=== PATIENT | male | born 1945 | race Caucasian/White ===

== ENCOUNTER → 2018-02-25 | Outpatient (CLI) | payer MEDICARE | END | disposition home or self-care (01) | LOC: RADUSWWP 09:22 | PROVIDERS: ATTEND Family Medicine | DX: R09.89 Other specified symptoms and signs involving the circulatory and respiratory systems (principal) | CPT/HCPCS: 93922 ==

== ENCOUNTER → 2018-04-22 | Outpatient (CLI) | payer MEDICARE ==
--- NOTE | 2018-04-22 16:02 | XR ---
Chest x-ray with right RIBS HISTORY: Trauma and pain Frontal view of the chest, 5 views of the ribs submitted on a total of 6 images. No comparisons Degenerative disc changes are present in the visualized spine. There is no evident pneumothorax or pl eural effusion. Cardiomediastinal silhouette, pulmonary vascularity and bob are within normal limits . Rib fracture is noted. Fracture is noted at likely 10th level posterior laterally with displacement . Impression: displaced 10th rib fracture on the right.
== END | disposition home or self-care (01) ==
LOC: RADXRYALE 14:53
PROVIDERS: ATTEND Physician Assistant Medical
DX: S22.31XA Fracture of one rib, right side, initial encounter for closed fracture (principal)

== ENCOUNTER → 2022-09-25 | Outpatient (CLI) | payer MEDICARE | END | disposition home or self-care (01) | LOC: LABWHC1 14:46 | PROVIDERS: ATTEND Internal Medicine Interventional Cardiology | DX: I21.9 Acute myocardial infarction, unspecified (principal); R10.9 Unspecified abdominal pain | CPT/HCPCS: 36415; 84484 ==

== ENCOUNTER → 2023-06-10 | Outpatient (CLI) | payer MEDICARE ==
--- NOTE | 2023-06-10 14:46 | US ---
EXAMINATION TYPE: US scrotum with doppler. Grayscale and color Doppler Duplex imaging performed of ranjit griffin scrotum. DATE OF EXAM: 06/10/2023 COMPARISON: NONE CLINICAL INDICATION: Male, 78 years old with history of N50.811 RIGHT TESTICULAR PAIN; EXAM MEASUREMENTS: TESTICLES: Right Testicle: 4.3 x 2.1 x 3.2 cm Left Testicle: 3.6 x 2.3 x 3.2 cm EPIDIDYMIS HEAD: Right Epididymis: 1.3 cm Left Epididymis: 1.1 cm Doppler performed to assess for testicular vascularity; good bilateral color flow and waveforms are s een. There is no evidence of testicular torsion. Presence of hydroceles: right - 4.5cm, left 2.7cm Presence of varicoceles: no IMPRESSION: 1. No evidence of testicular torsion or intratesticular mass. 2. Small bilateral hydroceles.
== END | disposition home or self-care (01) ==
LOC: RADUSWWP 13:31
PROVIDERS: ATTEND Family Medicine
DX: N49.2 Inflammatory disorders of scrotum (principal); N50.811 Right testicular pain; N43.3 Hydrocele, unspecified
CPT/HCPCS: 76870; 93975

== ENCOUNTER 2024-02-06 08:39 | Day surgery (SDC) | payer MEDICARE ==
[2024-02-05 09:35] VITALS: BMI 27.2
[2024-02-06] MEDS: LACTATED RINGERS 1,000 ML IV SCH (09:10)
[2024-02-06 09:14] LABS: Glucose,Whole Blood 114 mg/dL (70-110)
[2024-02-06 09:26] VITALS: RESP 16; TEMP 97.7
[2024-02-06] MEDS ORDERED: PROPOFOL 10 MG/ML 20 ML VIAL IV ONE (09:28)
--- NOTE | 2024-02-06 09:42 | P.PCN ---
Date of Procedure: 02/06/24 Procedure(s) Performed: BRIEF HISTORY: Patient is [id number] pleasant white male scheduled for an elective colonoscopy as a part of evaluation of intermittent rectal bleeding for the last 1 week duration.. PROCEDURE PERFORMED: Colonoscopy With biopsy. PREOPERATIVE DIAGNOSIS: Intermittent rectal bleeding. IV sedation per Anesthesia. PROCEDURE: After informed consent was obtained, the patient, was brought into the endoscopy unit. IV sedation was administered by Anesthesia under continuous monitoring. Digital rectal examination was normal. Initially the Olympus CF-160 flexible video colonoscope was then inserted in the rectum, gradually advanced into the cecum without any difficulty. Careful examination was performed as the scope was gradually being withdrawn. Ileocecal valve and the appendiceal orifice were visualized and appeared normal. Prep was excellent. Mucosa of the cecum, ascending colon, transverse colon, descending colon,Appeared normal. There were patchy areas of erythema noted in the sigmoid colon from 30-40 cm from the anal verge and multiple biopsies were done from this area. Rest of the sigmoid colon, and rectum appeared normal. Retroflexion was performed in the rectum and grade 2 internal hemorrhoids were seen. The patient tolerated the procedure well. IMPRESSION: Small internal hemorrhoids Mild patchy areas of erythema in the sigmoid: Extensive from 30-40 cm from the anal verge status post biopsies No evidence of colorectal neoplasia RECOMMENDATIONS: Findings of this examination were discussed with the patient As well as his family. He was advised to follow with the biopsy results. Continue with a high-fiber diet and take fiber supplements a regular basis.
[2024-02-06 09:55] LABS: Glucose,Whole Blood 121 mg/dL (70-110)
[2024-02-06 10:12] VITALS: BP 135/70; PULSE 82
== END 2024-02-06 10:13 | disposition home or self-care (01) ==
LOC: ORWHC2ENDO 08:39
PROVIDERS: ATTEND Internal Medicine Gastroenterology
DX: K64.8 Other hemorrhoids (principal); I10 Essential (primary) hypertension; E78.5 Hyperlipidemia, unspecified; E11.9 Type 2 diabetes mellitus without complications; Z79.01 Long term (current) use of anticoagulants; Z79.84 Long term (current) use of oral hypoglycemic drugs; Z79.899 Other long term (current) drug therapy; Z88.8 Allergy status to other drugs, medicaments and biological substances
CPT/HCPCS: 88305; 45380; J2704

== ENCOUNTER → 2024-07-24 | Outpatient (CLI) | payer MEDICARE ==
[2024-07-24 15:16] LABS: Basophils # (A) 0.05 X 10*3/uL (0.00-0.10); Basophils % (A) 0.7 %; Eosinophils % (A) 1.3 %; HCT 45.9 % (39.6-50.0); Lymphocytes # (A) 1.09 X 10*3/uL (0.90-5.00); Lymphocytes % (A) 14.2 %; MCH 29.1 pg (27.0-32.0); MCHC 32.7 g/dL (32.0-37.0); MCV 89.1 FL (80.0-97.0); Mean Platelet Volume 10.1 FL (9.5-12.2); Monocytes # (A) 0.66 X 10*3/uL (0.20-1.00); Monocytes % (A) 8.6 %; NRBC Per 100 WBC 0 X 10*3/uL (0.00-0.01); Neutrophils # (A) 5.74 X 10*3/uL (1.80-7.70); Neutrophils % (A) 74.9 %; Platelet Count 177 X 10*3/uL (140-440); RBC 5.15 X 10*6/uL (4.40-5.60); RDW 13.2 % (11.5-14.5); WBC 7.66 X 10*3/uL (4.50-10.00)
== END | disposition home or self-care (01) ==
LOC: LABPAT 11:05
PROVIDERS: ATTEND Surgery
DX: Z01.812 Encounter for preprocedural laboratory examination
CPT/HCPCS: 36415; 85025; 86850; 86900; 86901; 93005

== ENCOUNTER 2024-08-03 08:08 | Day surgery (SDC) | payer MEDICARE ==
[2024-07-29 11:02] VITALS: BMI 27.2
--- NOTE | 2024-08-03 07:38 | P.GSHP ---
History of Present Illness H&P Date: 08/03/24 Chief Complaint: Right inguinal hernia, umbilical hernia 79-year-old male here for elective repair right inguinal hernia. Increasing pain. Size is increased. Last seen in the office in March. Past Medical History Past Medical History: Atrial Fibrillation, Cancer, Diabetes Mellitus, Hyperlipidemia, Hypertension Additional Past Medical History / Comment(s): HX OF MELANOMA History of Any Multi-Drug Resistant Organisms: None Reported Additional Past Surgical History / Comment(s): MELANOMA REMOVED FROM ARM, COLONOSCOPY Past Anesthesia/Blood Transfusion Reactions: No Reported Reaction Additional Past Anesthesia/Blood Transfusion Reaction / Comment(s): no blood transfusion Past Psychological History: No Psychological Hx Reported Smoking Status: Never smoker Past Alcohol Use History: Daily Additional Past Alcohol Use History / Comment(s): 1 BEER A DAY Past Drug Use History: None Reported - Past Family History Mother Family Medical History: Diabetes Mellitus Father Family Medical History: Diabetes Mellitus Medications and Allergies Home Medications Medication Instructions Recorded Confirmed Type Fish Oil/Dha/Epa [Fish Oil 1,200 1 tab PO BID 09/02/14 07/29/24 History mg Fish Oil] Lisinopril [Zestril] 40 mg PO DAILY 09/02/14 07/29/24 History metFORMIN HCL [Glucophage] 500 mg PO DAILY 09/02/14 07/29/24 History Atenolol/Chlorthalidone 1 tab PO DAILY 02/05/24 07/29/24 History [Atenolol/Chlorthalidone 50-25] Atorvastatin [Lipitor] 80 mg PO DAILY 02/05/24 07/29/24 History Rivaroxaban [Xarelto] 20 mg PO DAILY 02/05/24 07/29/24 History hydrALAZINE HCL 25 mg PO BID 02/05/24 07/29/24 History Indomethacin 25 mg PO DIRECTED PRN 07/29/24 07/29/24 History Allergies Allergy/AdvReac Type Severity Reaction Status Date / Time amlodipine [From [facility]] Allergy Confusion Verified 07/29/24 10:46 Surgical - Exam Physical exam: General: Well-developed, well-nourished HEENT: Normocephalic, sclerae nonicteric Abdomen: Nontender, nondistended, reducible right inguinal hernia, small incarcerated umbilical hernia Extremities: No edema Neuro: Alert and oriented Assessment and Plan (1) Right inguinal hernia Narrative/Plan: 79-year-old male with reducible right inguinal hernia and small incarcerated umbilical hernia. Will proceed with laparoscopic da Taran assisted repair right inguinal hernia with mesh, possible open, possible bilateral, open repair umbilical hernia with possible mesh. Risks of bleeding, infection, recurrence, bladder and bowel injury, numbness, nerve injury, conversion to an open procedure were discussed with the patient. The patient understands and wishes to proceed. Status: Acute Code(s): K40.90 - UNIL INGUINAL HERNIA, W/O OBST OR GANGR, NOT SPCF RECUR OMED Code(s): 797469716
[~2024-08-03 08:08] MED LIST: LIDOCAINE 1% (10MG/ML) FOR IV START INTRADERMA PRN; droPERidol 5 MG/2 ML VIAL IVP ONE
[2024-08-03] MEDS: ACETAMINOPHEN TAB 500 MG TAB PO PRN (08:55)
[2024-08-03 09:03] LABS: Glucose,Whole Blood 138 mg/dL (70-110)
[2024-08-03] MEDS: MIDAZOLAM 2 MG/2 ML VIAL IVP ONE (09:08)
[2024-08-03] MEDS: MIDAZOLAM 2 MG/2 ML VIAL IV ONE (09:08)
[2024-08-03] MEDS: LACTATED RINGERS 1,000 ML IV SCH (09:12)
[2024-08-03] MEDS: ONDANSETRON 4 MG/2 ML VIAL IVP ONE (09:12)
[2024-08-03] MEDS: DEXAMETHASONE SOD PHOSPHATE 4 MG/ML 1 ML VIAL IV ONE (09:12)
--- NOTE | 2024-08-03 09:19 | P.ANPRN ---
Procedure Note - Anesthesia - Nerve Block Performed Bilateral Erector Spinae Single Time Out Performed: Yes Date of Procedure: 08/03/24 Procedure Start Time: : Procedure Stop Time: :12 Location of Patient: PreOp Indication: Acute Post-Operative Pain, Analgesia, Requested by Surgeon Sedation Type: Sedate with meaningful contact maintained Preparation: Sterile Prep Position: Prone Catheter: None Needle Types: Pajunk Needle Gauge: 21 Ultrasound used to visualize needle placement: Yes Ultrasound used to observe medication spread: Yes Injectate: 0.5% Ropivacaine (see comment for volume) (Ropiv 20ml+Decadron 4mg--Each side . AttemptX1) Blood Aspirated: No Pain Paresthesia on Injection Noted: No Resistance on Injection: Normal Image Stored and Saved: Yes Events: Uneventful and Well Tolerated
[2024-08-03] MEDS: HEPARIN SODIUM,PORCINE 5,000 UNIT/ML 1 ML VIAL SQ PRN (09:20)
[2024-08-03] MEDS: IV FLUID CONTINUATION 1,000 ML IV ONE (09:23)
[2024-08-03] MEDS: TAMSULOSIN 0.4 MG CAP.ER.24H PO STA (09:50)
[2024-08-03] MEDS ORDERED: NEOSTIGMINE 1 MG/ML 10 ML VIAL ONE (09:56)
[2024-08-03] MEDS ORDERED: fentaNYL (PF) 50 MCG/ML 2 ML AMP ONE (09:56)
[2024-08-03] MEDS ORDERED: ePHEDrine 50 MG/ML 1 ML VIAL ONE (09:56)
[2024-08-03] MEDS ORDERED: SUCCINYLCHOLINE CHLORIDE 200 MG/10 ML VIAL IV ONE (09:56)
[2024-08-03] MEDS ORDERED: ROPIVACAINE 5 MG/ML 30 ML VIAL ONE (09:56)
[2024-08-03] MEDS ORDERED: GLYCOPYRROLATE 0.2 MG/ML 2 ML VIAL ONE (09:56)
[2024-08-03] MEDS ORDERED: PROPOFOL 10 MG/ML 20 ML VIAL IV ONE (09:56)
[2024-08-03] MEDS ORDERED: DEXAMETHASONE SOD PHOSPHATE 4 MG/ML 1 ML VIAL ONE (09:56)
[2024-08-03] MEDS ORDERED: ROCURONIUM 10 MG/ML (5 ML VIAL) IV ONE (09:56)
[2024-08-03] MEDS ORDERED: LIDOCAINE 1% INJ 10MG/ML (20 ML MDV) ONE (09:56)
[2024-08-03] MEDS: BUPIVACAINE (PF) 0.25% 30 ML VIAL SQ ONE (10:25)
[2024-08-03 12:18] VITALS: TEMP 97.8
--- NOTE | 2024-08-03 12:25 | P.OP ---
Date of Procedure: 08/03/24 Procedure(s) Performed: PREOPERATIVE DIAGNOSIS: Right inguinal hernia, umbilical hernia POSTOPERATIVE DIAGNOSIS: Same PROCEDURE: Laparoscopic da Taran assisted repair right inguinal hernia with mesh, open repair umbilical hernia SURGEON: Dr. Palomino ANESTHESIA: General OPERATIVE PROCEDURE DETAILS: Patient was placed in the operating table in the supine position. The patient was placed under general anesthesia. The abdomen was prepped and draped in usual sterile fashion. A small curvilinear supraumbilical incision was made. The hernia sac was dissected away from the umbilical attachments and surrounding fat. The hernia sac was then excised. The defect in the fascia measured 1.5 x 1 cm. The 8 mm trocar was advanced into the peritoneal cavity through the defect. 2 sutures were placed on either side of the trocar to prevent air leak. Insufflation took place to 15 mmHg. 2 additional 8 mm trochars were placed in the right upper quadrant and left upper quadrant under visualization. The robotic arms were then brought in and docked into place. The fenestrated bipolar was used in the left arm and the laparoscopic adboul was utilized in the right arm. A 30 8 mm scope was used in the up position. The peritoneal cavity was inspected. Patient had an obvious right sided indirect inguinal hernia. There was a large portion of preperitoneal fat medial to this. No visible hernia on the left was seen. The peritoneum was incised in a horizontal fashion cephalad to the internal inguinal ring. Following that careful dissection of the preperitoneal space took place. This took place using both electrocautery, sharp dissection but primarily blunt dissection. Visualization of the pubic tubercle and Simon's ligament took place medially. Full dissection took place laterally as well. The hernia sac was fully dissected. There was no visible cord lipoma penetrating through the internal inguinal ring. Once we had adequate space the [id number] Progrip mesh was advanced into the preperitoneal space and flattened out appropriately to cover all potential hernia sites. The mesh was sutured medially using a absorbable 3 OV lock suture. The peritoneal defect was then closed using a absorbable 2-0 VLok suture. The hernia sac and the excess preperitoneal fat was incorporated into the peritoneal closure to help prevent future recurrence. A small defect in the peritoneum posteriorly was closed using a short running 3 OV lock suture. The pneumoperitoneum was then evacuated. The umbilical hernia was then repaired by closing the fascial defect using interrupted [id number] Ethibond sutures. The Seskin of the umbilicus was sutured back down to the fascia using a 3-0 Vicryl suture. The skin of all 3 sites was closed using a 4- 0 Monocryl stitch. Skin glue was then applied. HERNIA CHARACTERISTICS: Length: 1 cm Width: 1.5 cm Type: Reducible umbilical TYPE OF MESH USED: 15 cm ProGrip LOCATION OF MESH: Preperitoneal FIXATION: Absorbable 3 oh V-Loc suture PREOPERATIVE DISCUSSION ON SMOKING CESSASTION: Yes PREOPERATIVE DISCUSSION ON MORBID OBESITY: Yes PREOPERATIVE DISCUSSION ON APPROPRIATE USE OF NARCOTIC USE: Yes PREOPERATIVE EDUCATION: Multi Modal, Smoking Cessation and Weight Loss with BMI over 35. DISPOSITION: Stable to recovery room
[2024-08-03] MEDS: HYDROmorphone 0.5 MG/0.5 ML SYRINGE IVP PRN (12:52)
[2024-08-03 13:25] VITALS: RESP 16
[2024-08-03 14:02] VITALS: BP 119/74; PULSE 80
[2024-08-03] MEDS ORDERED: ACETAMINOPHEN TAB 325 MG TAB PO SCH (15:00)
[2024-08-03] MEDS ORDERED: IBUPROFEN 600 MG TAB PO SCH (18:00)
[2024-08-04] MEDS: MIDAZOLAM 2 MG/2 ML VIAL IVP ONE (09:08)
== END 2024-08-03 14:55 | disposition home or self-care (01) ==
LOC: OR 08:08
PROVIDERS: ATTEND Surgery
DX: K40.90 Unilateral inguinal hernia, without obstruction or gangrene, not specified as recurrent (principal); K42.9 Umbilical hernia without obstruction or gangrene
CPT/HCPCS: 49591; 49650; S2900; 64999; 88302

== ENCOUNTER → 2024-10-15 | Outpatient (CLI) | payer MEDICARE ==
--- NOTE | 2024-10-15 15:23 | XR ---
EXAMINATION TYPE: XR chest 2V, XR ribs 4 views RT DATE OF EXAM: 10/15/2024 1:50 PM COMPARISON: 04/22/2018 CLINICAL INDICATION: Male, 79 years old with history of [id number] CHEST PAIN, , FINDINGS: Chest: Heart borderline enlarged. Aorta and pulmonary vasculature within normal limits. There is trace blunt ing of the bilateral costophrenic angles and mild hyperinflation. DISH mid and lower thoracic spine. No consolidation. Right RIBS: There are mildly displaced fractures of the right posterolateral fifth and right lateral sixth ribs. Displacement up to half a shaft width. IMPRESSION: 1. Chest: Borderline heart size and suggestion of trace pleural effusions. Correlate to exclude mild fluid overload/CHF. 2. Right ribs: Age indeterminate fractures of the right fifth and sixth ribs, displaced up to half a shaft's width (though new from 04/22/2018). Correlate for point tenderness. [facility], , 10/15/2024 3:21 PM
== END | disposition home or self-care (01) ==
LOC: RADXRYALE 13:30
PROVIDERS: ATTEND Physician Assistant
DX: S22.41XA Multiple fractures of ribs, right side, initial encounter for closed fracture (principal); J90 Pleural effusion, not elsewhere classified; X58.XXXA Exposure to other specified factors, initial encounter
CPT/HCPCS: 71046